=== PATIENT | female | born 1940 | race Caucasian/White ===

== ENCOUNTER 2017-01-13 20:50 | Emergency (ER) | payer OTHER, MEDICARE ==
[~2017-01-13 20:50] MED LIST: ASPIR 8181 MG PO; CYMBALTA20 MG PO; TENORMIN50 MG PO; ZESTRIL40 M1 PO; ZINC15 M1 PO; ZOCOR40 MG PO
== END 2017-01-13 22:11 ==
LOC: EDMED 20:50
DX: S51.812A Laceration without foreign body of left forearm, initial encounter (principal); I10 Essential (primary) hypertension; Z79.82 Long term (current) use of aspirin; Z79.899 Other long term (current) drug therapy; W22.8XXA Striking against or struck by other objects, initial encounter; Y92.69 Other specified industrial and construction area as the place of occurrence of the external cause; Y99.0 Civilian activity done for income or pay